=== PATIENT | female | born 1975 | race Hispanic/Latino ===

== ENCOUNTER → 2017-03-25 | Outpatient (CLI) | payer OTHER ==
--- NOTE | 2017-03-25 10:47 | Diagnostic Imaging Report ---
INDICATION: Evaluate size and dates, anatomical survey. TECHNIQUE: Multiple real-time grayscale images were obtained over the gravid uterus. COMPARISON: None FINDINGS: Transabdominal sonographic evaluation of the gravid uterus was performed. Single live intrauterine at 27 weeks 6 days by today's sonographic measurements. EDC is 06/18/2017. presentation is transverse. Normal amniotic fluid index measuring 14.9 cm. Grade 2 placenta is located within the fundus with no placenta previa. heart rate measures 136 beats per minute. Uterine fibroids are noted anteriorly measuring 4.3 cm and 3.0 cm. There is good visualization of the kidneys, bladder, stomach, brain, four-chamber heart, three-vessel cord and insertion, spine, and extremities. Biometrical measurements are as follows: Biparietal 6.98 cm, age 28 weeks 1 days. Head circumference 25.37 cm, age 27 weeks 4 days. Abdominal circumference 23.1 cm, age 27 weeks 4 days. Femur length 5.25 cm, age 28 weeks 0 days. Sonographic estimate age: 27 weeks 6 days. Sonographic estimated date of delivery: 06/18/2017. Estimated Weight: 1110 gm (+/- 162 gm). LMP percentile: 31%. heart rate: 136 beats per minute. IMPRESSION: 1. Single live intrauterine at 27 weeks 6 days by sonographic measurements. 2. Normal anatomical survey. 3. Uterine fibroids. Dictated by: Dictated on workstation # [id number]
== END ==
LOC: RAD 09:17
PROVIDERS: ATTEND Family Medicine
DX: O09.32 Supervision of pregnancy with insufficient antenatal care, second trimester (principal); Z3A.27 27 weeks gestation of pregnancy
CPT/HCPCS: 76805

== ENCOUNTER 2017-06-21 07:05 | Inpatient (IN) | payer OTHER ==
[~2017-06-21] VITALS: Ht 152.4 cm; Wt 57.8 kg
[2017-06-21] VITALS (13 sets, daily range): BP systolic 106–137; BP diastolic 57–84
[2017-06-21 07:55] LABS: BASOPHILS % (AUTO) 0 % (0-10); EOSINOPHILS % (AUTO) 1 % (0-10); LYMPHOCYTES # (AUTO) 1.9 X 10^3 (1.0-4.0); LYMPHOCYTES % (AUTO) 21 % (12-44); MEAN CORPUSCULAR HEMOGLOBIN 30 PG (25-34); MEAN CORPUSCULAR HGB CONC 34 G/DL (32-36); MEAN CORPUSCULAR VOLUME 88 FL (80-99); MEAN PLATELET VOLUME 12.9 FL (7.4-10.4); MONOCYTES # (AUTO) 0.7 X 10^3 (0.0-1.0); MONOCYTES % (AUTO) 8 % (0-12); NEUTROPHILS # (AUTO) 6.2 X 10^3 (1.8-7.8); NEUTROPHILS % (AUTO) 70 % (42-75); PLATELET COUNT 164 10^3/uL (130-400); RED BLOOD COUNT 4.12 10^6/uL (4.35-5.85); RED CELL DISTRIBUTION WIDTH 13.6 % (10.0-14.5); WHITE BLOOD COUNT 8.8 10^3/uL (4.3-11.0)
[2017-06-21] MEDS ORDERED: D5 LR IV SOLUTION 1,000 ML IV ONE (08:21)
[2017-06-21] MEDS ORDERED: D5 LR IV SOLUTION 1,000 ML IV SCH (08:54)
[2017-06-21] MEDS ORDERED: MINERAL OIL CONCENTRATE 99.9% 15 ML UDC TOP PRN (09:00)
[2017-06-21] MEDS ORDERED: OXYTOCIN/NORMAL SALINE 500 ML IV ONE (09:10)
--- NOTE | 2017-06-21 09:10 | History & Physical-OB ---
OB - Chief Complaint & HPI Date/Time Date of Admission: Date of Admission: Jun 21, 2017 at 7:55 am Time Seen by Provider: 09:06 Chief Complaint/History OB-Reason for Admission/Chief: Rupture of Membranes Hx : 2 Hx Para: 1 Expected Date of Delivery: Jun 23, 2017 Gestational Age in Weeks: 39 Gestational Age in Days: 5 History of Labs O+, antibody neg. RNI. GC/chlamydia neg. HepB/HIV/RPR NR. GBS unknown. Allergies and Home Medications Allergies Coded Allergies: No Known Drug Allergies (Unverified , 06/21/17) OB - History Hx of Present Care: Yes Ultrasounds: Normal mid trimester US Obstetrical Complications: None (late to establish care (25 weeks)) Medical Complications: None Obstetrical History Hx : 2 Hx Para: 1 Hx # Term Pregnancies: 1 Hx # Pregnancies: 0 Number of Living Children: 1 Hx Termination: No Hx Multiple Gestation: No Hx Ectopic : No Hx Stillbirth: No Hx Complication: No Hx Induced Hypertens: No Hx Maternal Gestational Diabet: No Hx Hemorrhage: No Delivery History Hx Dystocia: No Hx Forceps Assisted Delivery: No Hx Vacuum Extraction Assisted: No Hx Placenta Abnormality: No Hx Distress: No Hx Large For Gestational Age I: No Hx Small for Gestational Age I: No Hx Section: No Hx Vaginal Delivery Post C-Sec: No Hx Blood Disorders: No Adverse Rxn to Tranfusion: No Patient Past Medical History PMHx: Denies SurgHx: Denies Social History/Family History HIV/AIDS: No Recent Infectious Disease Expo: No Sexually Transmitted Disease: No Alcohol Use: Denies Use Recreational Drug Use: No Smoking Cessation: Never smoker Immunizations Rubella: immune RPR/VDRL: Negative GBS Status: Unknown HBsAG: Negative OB - Admission Exam Physical Exam Date Seen by Provider: Jun 21, 2017 Time Seen by Provider: 09:09 HEENT: NCAT Cervical Dilatation: 4cm Membranes: Ruptured Heart Rate: 130's Accelerations: Accelerations Present Decelerations: No Decelerations Short Term Variability: Present Mounter Smoking Pipe Variability: Average (6-25) Contractions on Admission: < 5 Minutes Apart Intensity: Moderate Labs Laboratory Tests Test 06/21/17 07:40 Range/Units White Blood Count 8.8 4.3-11.0 10^3/uL Red Blood Count 4.12 L 4.35-5.85 10^6/uL Hemoglobin 12.2 11.5-16.0 G/DL Hematocrit 36 35-52 % Mean Corpuscular Volume 88 80-99 FL Mean Corpuscular Hemoglobin 30 25-34 PG Mean Corpuscular Hemoglobin Concent 34 32-36 G/DL Red Cell Distribution Width 13.6 10.0-14.5 % Platelet Count 164 130-400 10^3/uL Mean Platelet Volume 12.9 H 7.4-10.4 FL Neutrophils (%) (Auto) 70 42-75 % Lymphocytes (%) (Auto) 21 12-44 % Monocytes (%) (Auto) 8 0-12 % Eosinophils (%) (Auto) 1 0-10 % Basophils (%) (Auto) 0 0-10 % Neutrophils # (Auto) 6.2 1.8-7.8 X 10^3 Lymphocytes # (Auto) 1.9 1.0-4.0 X 10^3 Monocytes # (Auto) 0.7 0.0-1.0 X 10^3 Eosinophils # (Auto) 0.0 0.0-0.3 10^3/uL Basophils # (Auto) 0.0 0.0-0.1 10^3/uL OB - Assessment/Plan/Diagnosis Assessment Assessment: active labor, rupture of membranes, other (GBS unknown) Plan Plan: Expectant Management Copy Copies To 1: FLORENTINO SHINE MD, BETHANY N MD Jun 21, 2017 09:10
[2017-06-21] MEDS ORDERED: OXYTOCIN/NORMAL SALINE 500 ML IV SCH ×2 (09:30→13:09)
[2017-06-21] MEDS ORDERED: LIDOCAINE/EPI 1%-1:200,000 (XYLOCAINE) 30 ML VIAL ONE (12:00)
[2017-06-21] MEDS ORDERED: BENZOCAINE/MENTHOL (DERMOPLAST) 56 ML CAN TP ONE (12:15)
[2017-06-21] MEDS ORDERED: WITCH HAZEL(TUCKS) 40 EA JAR ONE (12:15)
--- NOTE | 2017-06-21 12:34 | OB Labor & Delivery Record ---
Vag Delivery Note Vag Delivery Note Date of Delivery: 06/21/17 Preoperative Diagnosis: Muna Gunn is a 41 /Para 2 / 1, Gestational Age (wks)39with 5d Postoperative Diagnosis: Same Surgeon: AMBAR LANCASTER Retail Merchandising Specialist: Ramona Bhatia, MS3 Anesthesia: none Delivery Type: Spontaneous vaginal delivery Findings: Viable male , apgars 9/9, weight 5#5 Lacerations: second degree perineal Intact placenta with 3 vessel cord. No nuchal cord, body cord or shoulder dystocia Estimated Blood Loss: 200 ml Complications: None Condition: Stable Description of Procedure: The patient is a 41 yo who presented after SROM. She was admitted and informed consent was obtained. Her labor course was unremarkable. She progressed to complete dilatation and began to push. She was then set up for delivery. The 's head was delivered atraumatically in the JORGE position. The shoulders and remainder of the 's body were then delivered without difficulty. Upon delivery, the infant was vigorous and placed on maternal abdomen. After a brief delay, the cord was doubly clamped and cut and the was handed off to the pediatric staff. An intact placenta with 3-vessel cord delivered via Rosalinda and there was found to be minimal bleeding.~ Vigorous fundal massage was performed and the fundus was found to be firm. IV oxytocin was given. Examination of the vagina and perineum revealed a second degree laceration repaired in the usual fashion with 3-0 rapide suture. Following the repair, sponge, instrument and needle counts were correct. Mom and baby were both in stable condition in the labor suite. Vitals - Labs Labs Laboratory Tests 06/21/17 07:40: White Blood Count 8.8, Red Blood Count 4.12L, Hemoglobin 12.2, Hematocrit 36, Mean Corpuscular Volume 88, Mean Corpuscular Hemoglobin 30, Mean Corpuscular Hemoglobin Concent 34, Red Cell Distribution Width 13.6, Platelet Count 164, Mean Platelet Volume 12.9H, Neutrophils (%) (Auto) 70, Lymphocytes (%) (Auto) 21 , Monocytes (%) (Auto) 8, Eosinophils (%) (Auto) 1, Basophils (%) (Auto) 0, Neutrophils # (Auto) 6.2, Lymphocytes # (Auto) 1.9, Monocytes # (Auto) 0.7, Eosinophils # (Auto) 0.0, Basophils # (Auto) 0.0 AMBAR LANCASTER MD Jun 21, 2017 12:34 pm
[2017-06-21] MEDS ORDERED: TETANUS,DIPTH,PERTUSS P/F (BOOSTRIX) 0.5 ML VIAL IM ONE (13:15)
[2017-06-21] MEDS ORDERED: MEASLES,MUMPS,RUBELLA 1 EA INJ SQ ONE (13:15)
[2017-06-21] MEDS ORDERED: WITCH HAZEL(TUCKS) 40 EA JAR TOP PRN (13:15)
[2017-06-21] MEDS ORDERED: BENZOCAINE/MENTHOL (DERMOPLAST) 56 ML CAN TP PRN (13:15)
[2017-06-21] MEDS: IBUPROFEN 600 MG (MOTRIN) TAB PO SCH ×2 (13:20→19:30)
[2017-06-21] MEDS ORDERED: CATHETER FLUSH 10 ML SYR IV SCH (14:00)
[2017-06-21] MEDS: CATHETER FLUSH 10 ML SYR IV SCH (19:32)
[2017-06-22 00:40] VITALS: BP 129/70
[2017-06-22] MEDS: IBUPROFEN 600 MG (MOTRIN) TAB PO SCH ×4 (01:09→19:18)
[2017-06-22 04:25] VITALS: BP 119/63
[2017-06-22] MEDS: CATHETER FLUSH 10 ML SYR IV SCH (06:04)
[2017-06-22 06:30] LABS: BASOPHILS % (AUTO) 0 % (0-10); EOSINOPHILS % (AUTO) 0 % (0-10); LYMPHOCYTES % (AUTO) 17 % (12-44); MEAN CORPUSCULAR HEMOGLOBIN 30 PG (25-34); MEAN CORPUSCULAR HGB CONC 33 G/DL (32-36); MEAN CORPUSCULAR VOLUME 89 FL (80-99); MEAN PLATELET VOLUME 12.5 FL (7.4-10.4); MONOCYTES # (AUTO) 0.8 X 10^3 (0.0-1.0); MONOCYTES % (AUTO) 7 % (0-12); NEUTROPHILS # (AUTO) 8.8 X 10^3 (1.8-7.8); NEUTROPHILS % (AUTO) 76 % (42-75); PLATELET COUNT 155 10^3/uL (130-400); RED BLOOD COUNT 3.83 10^6/uL (4.35-5.85); RED CELL DISTRIBUTION WIDTH 13.7 % (10.0-14.5); WHITE BLOOD COUNT 11.6 10^3/uL (4.3-11.0)
[2017-06-22 08:00] VITALS: BP 107/68
[2017-06-22] MEDS: PRENATAL VITAMIN 1 EA TAB PO SCH (09:26)
--- NOTE | 2017-06-22 11:08 | Progress Note (SOAP) ---
Subjective Subjective/Events-last exam No concerns. Bleeding has slowed. Bottle feeding. Review of Systems Time Seen by Provider: 09:30 Objective Exam Last Set of Vital Signs Vital Signs Date Time Temp Pulse Resp B/P (MAP) Pulse Ox O2 Delivery O2 Flow Rate FiO2 06/22/17 04:25 97.4 67 20 119/63 98 Room Air Capillary Refill : I&O Bad tableGeneral: Alert, Oriented X3, Cooperative Psych/Mental Status: Mental Status NL Results/Procedures Lab Laboratory Tests 06/22/17 06:25: White Blood Count 11.6H, Red Blood Count 3.83L, Hemoglobin 11.4L, Hematocrit 34L , Mean Corpuscular Volume 89, Mean Corpuscular Hemoglobin 30, Mean Corpuscular Hemoglobin Concent 33, Red Cell Distribution Width 13.7, Platelet Count 155, Mean Platelet Volume 12.5H, Neutrophils (%) (Auto) 76H, Lymphocytes (%) (Auto) 17, Monocytes (%) (Auto) 7, Eosinophils (%) (Auto) 0, Basophils (%) (Auto) 0, Neutrophils # (Auto) 8.8H, Lymphocytes # (Auto) 2.0, Monocytes # (Auto) 0.8, Eosinophils # (Auto) 0.0, Basophils # (Auto) 0.0 Assessment/Plan Assessment/Plan Admission Dx 1. PPD#1 s/p . Plan to DC home tomorrow. Plan see above Diagnosis/Problems: Clinical Quality Measures DVT/VTE Risk/Contraindication: Risk Factor Score Per Nursin RFS Level Per Nursing on Admit: 1=Low/No VTE PPX DICK HURST DO Jun 22, 2017 11:08
[2017-06-22 12:00] VITALS: BP 96/62
[2017-06-22 16:00] VITALS: BP 107/68
[2017-06-22 23:16] VITALS: BP 112/70
[2017-06-23] MEDS: IBUPROFEN 600 MG (MOTRIN) TAB PO SCH ×2 (02:23→08:19)
[2017-06-23 04:00] VITALS: BP 115/70
[2017-06-23] MEDS: PRENATAL VITAMIN 1 EA TAB PO SCH (08:19)
[2017-06-23 08:22] VITALS: BP 109/67
[2017-06-23] MEDS ORDERED: IBUP-1773 PO (10:26)
--- NOTE | 2017-06-23 10:29 | Discharge Instructions ---
Discharge Inst-Women's Serv Depart Medications New, Converted or Re-Newed RX: Call to Patients Pharmacy New Medications: Ibuprofen (Ibuprofen) 600 Mg Tablet 600 MG PO Q6H PRN for CRAMPS, #90 TAB Follow Up/Instructions Goal/Follow Up: Follow-up with Dr. Doshi in 6 weeks. Activity Activity: Activity as Tolerated Nothing Inside Vagina: No Douching, No Wiggins, No Tampons Diet Discharge Diet: No Restrictions Symptoms to Report to : Bleeding Excessive, Fever Over 101 Degrees F, Vaginal Bleeding Increase, Vaginal Discharge Foul, Shortness of Breath For Any Problems or Questions: Contact Your Physician Copies To 1: FLORENTINO DOSHI MD, LINDA K DO Jun 23, 2017 10:28
[2017-06-23] MEDS ORDERED: MEASLES,MUMPS,RUBELLA 1 EA INJ ONE (12:45)
== END 2017-06-23 14:00 | disposition home or self-care (01) | DRG 775 ==
LOC: LDRP 07:05 → WSo 07:05 → LDRP 07:55
PROVIDERS: ADMIT Family Medicine; ATTEND Family Medicine
PROC: 10E0XZZ Delivery of Products of Conception, External Approach (ICD-10-PCS; principal; 2017-06-21)
PROC: 0KQM0ZZ Repair Perineum Muscle, Open Approach (ICD-10-PCS; 2017-06-21)
DX: O26.893 Other specified pregnancy related conditions, third trimester (principal); O09.33 Supervision of pregnancy with insufficient antenatal care, third trimester; O70.1 Second degree perineal laceration during delivery; Z3A.39 39 weeks gestation of pregnancy; Z37.0 Single live birth; Z23 Encounter for immunization
CPT/HCPCS: 36415; 85025; 86850; 86900; 86901; 90707; 99212